=== PATIENT | female | born 1970 | race Caucasian/White ===

== ENCOUNTER 2017-01-02 17:21 | Emergency (ER) | payer OTHER ==
[2017-01-02] MEDS ORDERED: ONDANSETRON 4 MG TAB.RAPDIS PO ONE (17:44)
--- NOTE | 2017-01-02 17:45 | ER Document Report ---
ED Medical Screen (RME) - General Stated Complaint: chest wall swelling Mode of Arrival: Ambulatory Information source: Patient Notes: Patient presents to the emergency department with right-sided chest wall pain for the past 2 weeks. Pain increased with swelling to the right chest wall today. Also reports discoloration under right nipple. Patient does have a family history of breast cancer. Patient also reports that when she sits down she became dizzy also vomited today. Reports feels SOB at times today. History of hypothyroidism, recently increased synthroid. I have greeted and performed a rapid initial assessment of this patient. A comprehensive ED assessment and evaluation of the patient, analysis of test results and completion of the medical decision making process will be conducted by additional ED providers. Physical Exam - Vital signs Vitals: Temp Pulse Resp BP Pulse Ox 97.8 F 92 16 101/85 98 01/02/17 17:25 01/02/17 17:25 01/02/17 17:25 01/02/17 17:25 01/02/17 17:25 Course - Vital Signs Vital signs: Temp Pulse Resp BP Pulse Ox 97.8 F 92 16 101/85 98 01/02/17 17:25 01/02/17 17:25 01/02/17 17:25 01/02/17 17:25 01/02/17 17:25
[2017-01-02 20:35] LABS: APPEARANCE,URINE CLEAR; BILIRUBIN,URINE NEGATIVE (NEGATIVE); GLUCOSE, URINE NEGATIVE (NEGATIVE); KETONES,URINE TRACE mg/dL (NEGATIVE); LEUKOCYTE ESTERASE,URINE NEGATIVE (NEGATIVE); NITRITE,URINE NEGATIVE (NEGATIVE); PROTEIN,URINE NEGATIVE (NEGATIVE); URINE SPECIFIC GRAVITY 1.016; UROBILINOGEN,URINE NEGATIVE mg/dL (<2.0)
[2017-01-02 20:37] LABS: ABSOLUTE BASOPHILS # (AUTO) 0.1 10^3/uL (0.0-0.2); ABSOLUTE EOSINOPHILS # (AUTO) 0.3 10^3/uL (0.0-0.6); ABSOLUTE LYMPHOCYTES (AUTO) 4.1 10^3/uL (0.5-4.7); ABSOLUTE MONOCYTES (AUTO) 0.5 10^3/uL (0.1-1.4); BASOPHILS % (AUTO) 0.8 % (0-2); EOSINOPHILS % (AUTO) 3.6 % (0-6); HEMOGLOBIN 14.5 g/dL (12.0-15.5); HGB HCT DIFFERENCE 1.5; LYMPHOCYTES % (AUTO) 45.9 % (13-45); MEAN CORPUSCULAR HEMOGLOBIN 29.9 pg (27.0-33.4); MEAN CORPUSCULAR HGB CONC 34.4 g/dL (32.0-36.0); MEAN CORPUSCULAR VOLUME 87 fl (80-97); RED BLOOD COUNT 4.85 10^6/uL (3.72-5.28); RED CELL DISTRIBUTION WIDTH 13.1 % (11.5-14.0); SEGMENTED NEUTROPHILS % (AUTO) 44.7 % (42-78)
[2017-01-02 20:58] LABS: ALANINE AMINOTRANSFERASE 41 U/L (9-52); ALBUMIN 4.8 g/dL (3.5-5.0); ALKALINE PHOSPHATASE 90 U/L (38-126); ANION GAP 14 (5-19); ASPARTATE AMINO TRANSFERASE 27 U/L (14-36); BILIRUBIN,DIRECT 0.3 mg/dL (0.0-0.4); BILIRUBIN,TOTAL 0.6 mg/dL (0.2-1.3); BLOOD UREA NITROGEN 13 mg/dL (7-20); CALCIUM 9.7 mg/dL (8.4-10.2); CARBON DIOXIDE 26 mmol/L (22-30); CHLORIDE 103 mmol/L (98-107); CREATININE RESULT 0.76 mg/dL (0.52-1.25); GLUCOSE 124 mg/dL (75-110); POTASSIUM 3.8 mmol/L (3.6-5.0); SODIUM 143.4 mmol/L (137-145); TOTAL PROTEIN 7.9 g/dL (6.3-8.2)
[2017-01-02 23:32] LABS: CREATINE KINASE MB 1.16 ng/mL (<4.55)
[2017-01-02 23:34] LABS: TROPONIN I < 0.012 ng/mL
--- NOTE | 2017-01-03 00:17 | EKG REPORT ---
SEVERITY:- ABNORMAL ECG - SINUS RHYTHM NONSPECIFIC T ABNORMALITIES, INFERIOR LEADS : Confirmed by: Tito Farris 03-Jan-2017 00:17:08
--- NOTE | 2017-01-03 01:17 | ER Document Report ---
ED Cardiac - General Chief Complaint: Chest Pain Stated Complaint: CHEST PAIN Mode of Arrival: Ambulatory Information source: Patient Notes: 46 y/o F presents to ED c/o right sided chest wall pain. Pt reports over the last 2 weeks has had persistent dull ache to right chest wall/upper breast area. States over the last two days has developed burning type pain to area which radiates to her right back. Reports has also noted some discoloration to breast skin near right areola/nipple. Denies nipple discharge or skin thickening , redness, or warmth. Reports today had an episode of dizziness when she stood up from bending position while cleaning. Reports immediately sat down and dizziness subsequently subsided. Denies aggravating or relieving factors to chest pain. Denies fever, sob, n/v, diaphoresis, TRAVEL OUTSIDE OF THE [place] IN LAST 30 DAYS: No - HPI Was the onset of pain: Gradual Chest pain location: Under breast Quality of pain: Constant Chest pain radiation location: Back Severity now: Mild Severity at worst: Moderate Pain level currently: 1 Chest pain precipitating factors: At Rest Positive cardiac history: No Relieved by: Nothing Similar symptoms previously: No Recently seen / treated by doctor: No - Related Data Allergies/Adverse Reactions: aspirin Allergy (Verified 01/02/17 17:44) naproxen Allergy (Verified 01/02/17 17:44) Past Medical History - General Information source: Patient - Social History Smoking Status: Never Smoker Frequency of alcohol use: None Drug Abuse: None Lives with: Family Family History: Reviewed & Not Pertinent Patient has suicidal ideation: No Patient has homicidal ideation: No Endocrine Medical History: Reports: Hx Hypothyroidism Renal/ Medical History: Denies: Hx Peritoneal Dialysis Surgical Hx: Negative - Immunizations Hx Diphtheria, Pertussis, Tetanus Vaccination: Yes Review of Systems - Review of Systems Constitutional: No symptoms reported EENT: No symptoms reported Cardiovascular: See HPI Respiratory: No symptoms reported Gastrointestinal: No symptoms reported Genitourinary: No symptoms reported Female Genitourinary: No symptoms reported Musculoskeletal: See HPI Skin: No symptoms reported Hematologic/Lymphatic: No symptoms reported Neurological/Psychological: No symptoms reported -: Yes All other systems reviewed and negative Physical Exam - Vital signs Vitals: Temp Pulse Resp BP Pulse Ox 97.8 F 92 16 101/85 98 01/02/17 17:25 01/02/17 17:25 01/02/17 17:25 01/02/17 17:25 01/02/17 17:25 - General General appearance: Appears well, Alert In distress: None - Respiratory Respiratory status: No respiratory distress Chest status: Tender. No: Nontender, Chest mass, Ecchymosis, No pleuritic chest pain, Pain on movement, Pain with cough, Pain with deep breathing, Wounds , Accessory muscle use, Prolonged expirations, Splinting, Other Breath sounds: Normal - CTAB Chest palpation: Tender - tenderness with palpation to right chest wall at superior and medial aspect of right breast as well as inferior medial breast fold. no significant palpable mass, warmth, erythema, skin changes, crepitus, fluctuance, or nipple drainage.. No: Flail segment, [place] frothy sputum, Purulent sputum, Subcutaneous emphysema, Sucking chest wound, Ecchymosis, Wounds , Other - Cardiovascular Rhythm: Regular Heart sounds: Normal auscultation Murmur: No Pulses: Normal: Radial Normal capillary refill: Yes - Abdominal Inspection: Normal Distension: No distension Bowel sounds: Normal Tenderness: Nontender Organomegaly: No organomegaly - Back Back: Normal, Nontender - Extremities General upper extremity: Normal inspection, Nontender, Normal color, Normal ROM , Normal strength, Normal temperature. No: Tender, Edema General lower extremity: Normal inspection, Nontender, Normal color, Normal ROM , Normal strength, Normal temperature, Normal weight bearing. No: Tender, Edema - Neurological Neuro grossly intact: Yes Cognition: Normal Orientation: AAOx4 Nathan Coma Scale Eye Opening: Spontaneous Nathan Coma Scale Verbal: Oriented Wilder Coma Scale Motor: Obeys Commands Wilder Coma Scale Total: 15 Speech: Normal Cranial nerves: Normal Cerebellar coordination: Normal Motor strength normal: LUE, RUE, LLE, RLE Additional motor exam normals: Equal residential counselor Sensory: Normal - Psychological Associated symptoms: Normal affect, Normal mood - Skin Skin Temperature: Warm Skin Moisture: Dry Skin Color: Normal Course - Re-evaluation Re-evalutation: 01/03/17 01:20 Pt hemodynamically stable, in no distress, afebrile, non-toxic, and appears well hydrated. Patient's labs unremarkable. TSH elevated which patient reports is near her usual level and is currently being increasingly titrated on thyroid medication per PCP. No suggestion of thyroid complications at this time. The patient has atypical chest pain as the patient's chest pain is not suggestive of pulmonary embolus, cardiac ischemia, aortic dissection, or other serious etiology. Given the extremely low risk of these diagnoses further testing and evaluation for these possibilities does not appear to be indicated at this time. The patient has been instructed to return if the symptoms worsen or change in any way. Patient states has appointment with primary care provider today at 1:45 PM and agrees to keep appointment and return to the emergency department for any worsening symptoms or concerns. Pt presentation, findings, and plan discussed with ED physician Dr. Bailon who concurs with evaluation and treatment. - Vital Signs Vital signs: Temp Pulse Resp BP Pulse Ox 97.8 F 92 25 H 122/81 96 01/02/17 17:25 01/02/17 17:25 01/03/17 01:01 01/03/17 01:01 01/03/17 01:01 - Laboratory Result Diagrams: 01/02/17 20:20 01/02/17 20:20 Laboratory results interpreted by me: 01/02/17 01/02/17 01/02/17 20:20 20:20 20:20 Lymphocytes % 45.9 H Glucose 124 H TSH 5.57 H Urine Ketones Urine Blood 01/02/17 20:20 Lymphocytes % Glucose TSH Urine Ketones TRACE H Urine Blood SMALL H - Diagnostic Test Radiology reviewed: Image reviewed, Reports reviewed - EKG Interpretation by Me EKG shows normal: Sinus rhythm, [place], Intervals, QRS Complexes, ST-T Waves Rate: Normal When compared to previous EKG there are: Previous EKG unavailable Discharge - Discharge Clinical Impression: Right-sided chest wall pain Condition: Stable Disposition: HOME, SELF-CARE Additional Instructions: CHEST PAIN OF UNCLEAR CAUSE: The exact cause of your chest pain isn't clear. Fortunately, there is no evidence of a dangerous medical condition. Further testing may be required to find the source of the pain. Most often, we find that this pain is coming from the chest wall -- the muscles or rib joints in the chest. But chest pain can come from the lung and lung lining, the esophagus, the heart valves or heart lining, and even the stomach or gallbladder. Rest. Eat lightly until the pain is gone. We may prescribe medicine for pain and inflammation. You should call the physician immediately if the pain radiates to the shoulder, jaw or arms; if you start to run a fever or develop a cough; or if you develop shortness of breath, or other new or alarming symptoms. CHEST WALL PAIN: Your chest pain may be coming from the chest wall. This is often caused by straining the muscles or joints in the chest during physical activity, direct trauma, coughing, or vigorous vomiting. Persons with arthritis are especially prone to this type of pain, due to inflammation of the cartilage joints near the breast bone. Occasionally, no cause can be found. Rest from strenuous physical activity. This kind of chest pain is usually made worse by movement of the chest. Depending on the symptoms, we may prescribe medicine for pain, muscle relaxation, and antiinflammatory effects. If the pain is new, and seems to be due to muscle strain, cold packs can help. Otherwise, apply gentle warmth to the painful area for 15 minutes every hour or two. You should call contact the doctor immediately if things change. Further evaluation is needed if you develop a fever or cough, if the nature of the pain changes, or if you become short of breath. Breast Pain Breast pain is a common concern with many causes, most of which are benign (not cancer). Pain should first be evaluated fully by a health care provider to include a thorough breast exam and potentially breast imaging such as a mammogram and/or ultrasound. If this evaluation fails to identify an abnormality such as a cyst causing the pain, therapies aimed at treating physiologic breast pain can be considered. Use of [id number] Ibuprofen Ibuprofen (Advil, Nuprin, Medipren, Motrin IB) is an excellent, safe drug for fever and pain control. In addition, it has anti- inflammatory effects which may be beneficial, especially in the treatment of injuries. It's best to take ibuprofen with food. Persons with ulcer disease or allergy to aspirin should notify their physician of this before taking ibuprofen. Ibuprofen can be given every four to six hours, for a total of four doses daily. Age Pain or fever dose Antiinflammatory dose 6-8 yr 200 mg (1 tab) 200 mg (1 tab) 9-11 yr 200 mg (1 tab) 200-400 mg (1-2 tab) 11-14 yr 200-400 mg (1-2 tab) 400 mg (2 tab) 15-adult 400 mg (2 tab) 600 mg (3 tab) FOLLOW-UP CARE: Drink plenty of fluids. Keep your appointment and follow-up with your primary care provider later today as discussed. Return to the emergency department for any worsening symptoms or concerns. Forms: Return to Work, Treatment of Relative/Child Referrals: BRADY GAY MD [Primary Care Provider] - 01/03/17
[2017-01-03 01:32] VITALS: BP 122/81
== END 2017-01-03 01:34 | disposition home or self-care (01) ==
LOC: ER 17:21 → MERGE 17:21 → ER 01-03 01:34
DX: R07.89 Other chest pain (principal); R42 Dizziness and giddiness; E03.9 Hypothyroidism, unspecified; Z79.899 Other long term (current) drug therapy; Z88.6 Allergy status to analgesic agent; Z88.8 Allergy status to other drugs, medicaments and biological substances
CPT/HCPCS: 93005; 99285; 36415; 82553; 82550; 84443; 85025; 80053; 81001; 84484; 71020; 93010; S0119

== ENCOUNTER → 2017-01-17 | Outpatient (CLI) | payer OTHER | LOC: WI 08:18 | PROVIDERS: ATTEND Family Medicine | DX: N64.4 Mastodynia (principal) | CPT/HCPCS: 76642; G0204; 77066 ==

== ENCOUNTER → 2017-02-14 | Outpatient (CLI) | payer OTHER | LOC: WI 13:04 | PROVIDERS: ATTEND Family Medicine | DX: N60.02 Solitary cyst of left breast (principal) | CPT/HCPCS: 76641 ==